=== PATIENT | male | born 1955 | race Caucasian/White ===

== ENCOUNTER 2021-12-06 10:40 | Emergency (ER) | payer MEDICARE, SELFPAY ==
[2021-12-06 10:58] VITALS: BP 154/87; PULSE 73; RESP 20; TEMP 36.9; O2SAT 97
--- NOTE | 2021-12-06 11:43 | CTR_ITS ---
PROCEDURE INFORMATION: Exam: CT Abdomen And Pelvis Without Contrast Exam date and time: 12/06/2021 12:20 PM Age: 66 years old Clinical indication: Abdominal pain; Generalized; Prior surgery; Surgery date: 1-6 months; Surgery type: 1/2 colon removed; Additional info: Flank pain TECHNIQUE: Imaging protocol: Computed tomography of the abdomen and pelvis without contrast. Radiation optimization: All CT scans at this facility use at least one of these dose optimization techniques: automated exposure control; mA and/or kV adjustment per patient size (includes targeted exams where dose is matched to clinical indication); or iterative reconstruction. COMPARISON: No relevant prior studies available. RADIATION DOSE METRICS: Total DLP (mGy-cm): 1413.03 FINDINGS: Liver: Normal. No mass. Gallbladder and bile ducts: Normal. No calcified stones. No ductal dilation. Pancreas: Normal. No ductal dilation. Spleen: Normal. No splenomegaly. Adrenal glands: Normal. No mass. Kidneys and ureters: There is a 3 mm calculus in the left UVJ.Moderate hydronephrosis/hydroureter and associated inflammatory stranding. There are additional calculi in the left renal calices the larger of which measures 12 mm. There is a cyst with benign features in the right kidney measuring 2.1 cm. Follow-up is not necessary. There is a punctate nonobstructing right renal calculus. 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 Appendix: No evidence of appendicitis. Intraperitoneal space: Unremarkable. No free air. No significant fluid collection. Vasculature: Unremarkable. No abdominal aortic aneurysm. Lymph nodes: Unremarkable. No enlarged lymph nodes. Urinary bladder: Unremarkable as visualized. Reproductive: Unremarkable as visualized. Bones/joints: Unremarkable. No acute fracture. Soft tissues: There are postoperative changes in the ventral abdominal wall. CT/CT abdomen pelvis wo con [id number] IMPRESSION: There is a 3 mm calculus in the left UVJ with obstructive changes as described above. COMMENTS: Consistent with the [employer]'s Incidental Findings Committee white paper (J Am Eugene Radiol 2018): Any incidental renal lesion less than 1 cm or classified as too small to characterize, or any incidental cystic renal lesion characterized as simple-appearing, is likely benign. No follow-up imaging is recommended for these lesions per consensus recommendations based on imaging criteria.
[2021-12-06 11:50] LABS: Basophils % 0.2 %; Eosinophils % 0.1 %; Hematocrit 39.8 % (42.0-52.0); Hemoglobin 12.3 g/dL (11.7-16.6); Lymphocytes # 1.2 10^3/uL (0.8-4.8); Lymphocytes % 8.7 %; Mean Corpuscular HGB Conc 30.9 g/dL (30.0-36.0); Mean Corpuscular Hemoglobin 25.2 pg (28.0-34.0); Mean Corpuscular Volume 81.4 fl (80-94); Mean Platelet Volume 11.2 fL (7.4-10.4); Monocytes # 1.3 10^3/uL (0.2-0.9); Monocytes % 9.2 %; Neutrophils # 11.38 10^3/uL (1.8-7.7); Neutrophils % 81.1 %; Nucleated Red Blood Cells % 0 %; Platelet Count 318 10^3/cmm (130-400); Red Blood Count 4.89 10^6/uL (4.1-5.3); Red Cell Distribution Width 16.5 % (12.1-15.1)
[2021-12-06 12:06] LABS: Alanine Aminotransferase 13 U/L (0-41); Albumin Level 3.8 g/dL (3.5-5.2); Alkaline Phosphatase 89 IU/L (40-130); Anion Gap 15.2 (5-19); Aspartate Amino Transferase 14 U/L (0-40); Blood Urea Nitrogen 15 mg/dL (8-23); Calcium 9.3 mg/dL (8.5-10.5); Carbon Dioxide 27 mmol/L (22-29); Chloride 94 mmol/L (98-107); Globulin 4.3 g/dL (1.3-4.6); Glomerular Filtration Rate 84.4 mL/min (90-130); Glucose 169 mg/dL (65-115); Lipase 8 U/L (13-60); Osmolality Calculated 279 mOsm/kg (285-295); Potassium 4.2 mmol/L (3.5-5.1); Sodium 132 mmol/L (136-145); Total Bilirubin 0.5 mg/dL (0.15-1.2); Total Protein 8.1 g/dL (6.6-8.7)
--- NOTE | 2021-12-06 13:17 | ED_ITS ---
HPI - Back Pain/Injury General: Chief Complaint: Back Pain/Injury Stated Complaint: back pain, possible kidney stone, n/v Time Seen by Provider: 12/06/21 13:10 Source: patient Mode of arrival: ambulatory Limitations: no limitations History of Present Illness: 66-year-old male who states he has been having left-sided flank pain over the last 4 to 5 days he states he was seen at [place] than did have a distal kidney stone. He states that his pain is continued to worsening. He states the pain is now into his abdomen he is concerned because he did have a partial colectomy earlier this year. Patient's had some nausea and vomiting had a hard time tolerating his pain pills. Patient denies any fevers denies any worsening proving factors. Associated symptoms: Reports abdominal pain, nausea and vomiting; Deny chills, dysuria or fever(s) Review of Systems Const: Denies: fever(s), chills, body aches or change in appetite Eyes: Denies: blurry vision or eye discomfort ENMT: Denies: throat pain or dental pain Card: Denies: chest pain Resp: Denies: dyspnea GI: Reports: abdominal pain, nausea and vomiting : Denies: dysuria Musc: Denies: neck pain or back pain Skin/Breast: Denies: rash Neuro: Denies: headache(s) Psych: Denies: depression Vince/Lymph: Denies: easy bruising All/Imm: Denies: urticaria PFSH ED PFSH: Surgical History (Updated 12/06/21 @ 13:17 by Carlos Fallon MD) H/O colectomy Social History (Updated 12/06/21 @ 13:17 by Carlos Fallon MD) Substance/Drug Use: never Physical Exam Const: COMMON NORMALS: no acute distress, patient oriented x3 and healthy appearing HENMT: COMMON NORMALS: normocephalic and atraumatic HEAD & SCALP: normocephalic and atraumatic Eye: COMMON NORMALS: Equal, round and reactive pupils present and EOMs intact bilaterally PUPIL: Yes Equal, round and reactive pupils present Neck/C-Spine: COMMON NORMALS: full ROM and supple Chest: COMMONS NORMALS: normal inspection of the chest and normal palpation of entire chest wall Resp: COMMON NORMALS: normal respiratory effort, No retractions, No use of accessory muscles and clear to auscultation bilaterally AUSCULTATION: clear to auscultation bilaterally Cardio: COMMON NORMALS: regular rate, regular rhythm and No murmurs present (Cardio) RATE: regular rate RHYTHM: regular rhythm GI: COMMON NORMALS: Normal to inspection, nondistended, normoactive bowel sounds present, Soft to palpation and no masses PALPATION: Yes Soft to palpation OTHER: diffuse mild tenderness Extremity: COMMON NORMALS: normal to inspection and full ROM Neuro: COMMON NORMALS: patient oriented x3, moves all extremities and no focal motor deficits Psych: COMMON NORMALS: mental status grossly normal, Normal thought process present and cooperative THOUGHT PROCESS: Normal thought process present Skin: COMMON NORMALS: no rashes or lesions noted and no wounds GENERAL SKIN EXAM: no rashes or lesions noted Course Vital Signs: Vital signs: Vital Signs Temperature 98.4 F 12/06/21 10:58 Pulse Rate 81 12/06/21 15:10 Respiratory Rate 14 12/06/21 15:10 Blood Pressure 161/94 12/06/21 15:10 Pulse Oximetry 90 12/06/21 15:10 MDM - Back Pain/Injury Medical Decision Making Patient presents with flank pain along with abdominal pain he was found to have a kidney stone. Patient has no signs of infection here his CT was otherwise normal we will get him follow-up with urology and he is to return if worsening he understands agrees to plan. Labs : 12/06/21 11:13 12/06/21 11:13 Radiology Impressions Abdomen/Pelvis CT 12/06/21 11:43 IMPRESSION: There is a 3 mm calculus in the left UVJ with obstructive changes as described above. COMMENTS: Consistent with the [employer]'s Incidental Findings Committee white paper (J Am Eugene Radiol 2018): Any incidental renal lesion less than 1 cm or classified as too small to characterize, or any incidental cystic renal lesion characterized as simple-appearing, is likely benign. No follow-up imaging is recommended for these lesions per consensus recommendations based on imaging criteria. Laboratory Results WBC 14.0 10^3/uL (4.0-10.0) H 12/06/21 11:13 RBC 4.89 10^6/uL (4.1-5.3) 12/06/21 11:13 Hgb 12.3 g/dL (11.7-16.6) 12/06/21 11:13 Hct 39.8 % (42.0-52.0) L 12/06/21 11:13 MCV 81.4 fl (80-94) 12/06/21 11:13 MCH 25.2 pg (28.0-34.0) L 12/06/21 11:13 MCHC 30.9 g/dL (30.0-36.0) 12/06/21 11:13 RDW 16.5 % (12.1-15.1) H 12/06/21 11:13 Plt Count 318 10^3/cmm (130-400) 12/06/21 11:13 MPV 11.2 fL (7.4-10.4) H 12/06/21 11:13 Neut % (Auto) 81.1 % 12/06/21 11:13 Lymph % (Auto) 8.7 % 12/06/21 11:13 [place] % (Auto) 9.2 % 12/06/21 11:13 Eos % (Auto) 0.1 % 12/06/21 11:13 Baso % (Auto) 0.2 % 12/06/21 11:13 Neut # (Auto) 11.38 10^3/uL (1.8-7.7) H 12/06/21 11:13 Lymph # (Auto) 1.2 10^3/uL (0.8-4.8) 12/06/21 11:13 [place] # (Auto) 1.3 10^3/uL (0.2-0.9) H 12/06/21 11:13 Eos # (Auto) 0.0 10^3/uL (0.0-0.8) 12/06/21 11:13 Baso # (Auto) 0.0 10^3/uL (0.0-0.1) 12/06/21 11:13 Nucleated RBC % (auto) 0 % 12/06/21 11:13 Nucleated RBCs # 0.0 /100WBC 12/06/21 11:13 Sodium 132 mmol/L (136-145) L 12/06/21 11:13 Potassium 4.2 mmol/L (3.5-5.1) 12/06/21 11:13 Chloride 94 mmol/L (98-107) L 12/06/21 11:13 Carbon Dioxide 27 mmol/L (22-29) 12/06/21 11:13 Anion Gap 15.2 (5-19) 12/06/21 11:13 BUN 15 mg/dL (8-23) 12/06/21 11:13 Creatinine 0.9 mg/dL (0.7-1.2) 12/06/21 11:13 GFR Calculation 84.4 mL/min (90-130) L 12/06/21 11:13 Glucose 169 mg/dL (65-115) H 12/06/21 11:13 Calculated Osmolality 279 mOsm/kg (285-295) L 12/06/21 11:13 Calcium 9.3 mg/dL (8.5-10.5) 12/06/21 11:13 Total Bilirubin 0.5 mg/dL (0.15-1.2) 12/06/21 11:13 AST 14 U/L (0-40) 12/06/21 11:13 ALT 13 U/L (0-41) 12/06/21 11:13 Alkaline Phosphatase 89 IU/L (40-130) 12/06/21 11:13 Total Protein 8.1 g/dL (6.6-8.7) 12/06/21 11:13 Albumin 3.8 g/dL (3.5-5.2) 12/06/21 11:13 Globulin 4.3 g/dL (1.3-4.6) 12/06/21 11:13 Lipase 8 U/L (13-60) L 12/06/21 11:13 Urine Color Yellow (Yellow) 12/06/21 13:45 Urine Appearance Clear (CLEAR) 12/06/21 13:45 Urine pH 5 (5-7) 12/06/21 13:45 Ur Specific [place] 1.015 (1.005-1.030) 12/06/21 13:45 Urine Protein 1+ (Negative) H 12/06/21 13:45 Urine Glucose (UA) Norm (Normal) 12/06/21 13:45 Urine Ketones 1+ (Negative) H 12/06/21 13:45 Urine Blood 3+ (Negative) H 12/06/21 13:45 Urine Nitrate Negative (Negative) 12/06/21 13:45 Urine Bilirubin Neg (Negative) 12/06/21 13:45 Urine Urobilinogen 1 mg/dL (Negative) H 12/06/21 13:45 Ur Leukocyte Esterase Negative (Negative) 12/06/21 13:45 Urine RBC 5-10 /hpf (0-2) H 12/06/21 13:45 Urine WBC 0-4 /hpf (0-5) H 12/06/21 13:45 Ur Squamous Epith Cells None /hpf (0-5) 12/06/21 13:45 Ur Transition Epith Cell 0-4 /hpf 12/06/21 13:45 Amorphous Sediment Not Reportable 12/06/21 13:45 Urine Bacteria Trace /hpf (NONE) 12/06/21 13:45 Urine Mucus Trace /hpf 12/06/21 13:45 Discharge Plan Discharge Patient Disposition: Home Clinical Impression: Kidney stone Prescriptions: New ondansetron 4 mg tablet,disintegrating 4 mg PO Q6H PRN (Reason: nausea and vomiting) Qty: 14 0RF Discharge Orders: Discharge ED (Routine); Ordered 12/06/21 Ordered By: Carlos Fallon Referrals: Campbell Feliz MD [Physician] - 1-3 days Ephraim Ann [Primary Care Provider] - Discharge Diet: Advance as tolerated Discharge Activity: Resume usual activity Patient Instructions: Kidney Stones (ED), Opioid Safety Coding Level of Care Code ED Mend Worker for lBancag Fwd Exam Comprehensive
[2021-12-06 13:31] VITALS: BP 179/95; PULSE 74; RESP 15; O2SAT 98
[2021-12-06 14:31] VITALS: BP 162/85; PULSE 76; RESP 15; O2SAT 92
[2021-12-06 14:32] LABS: Add Urine Microscopic? YES; Bacteria Urine TRACE /hpf; Bilirubin Urine Neg (Negative); Blood Urine 3+ (Negative); Glucose Urine UA Norm (Normal); Ketones Urine 1+ (Negative); Leukocyte Esterase Urine Negative (Negative); Nitrate Urine Negative (Negative); Protein Urine 1+ (Negative); Specific Gravity, Urine 1.015 (1.005-1.030); Urine Appearance Clear (CLEAR); Urine Color Yellow (Yellow); Urobilinogen Urine 1 mg/dL (Negative); WBC Urine 0-4 /hpf (0-5); pH Urine 5 (5-7)
[2021-12-06 14:33] LABS: Add Urine Culture? No; Mucus Urine TRACE /hpf; Transitional Epi Cells Urine 0-4 /hpf
[2021-12-06 15:10] VITALS: BP 161/94; PULSE 81; RESP 14; O2SAT 90
== END 2021-12-06 15:00 | disposition home or self-care (01) ==
PROVIDERS: Emergency Medicine; Emergency Provider Emergency Medicine; PCP Family Medicine
DX: N20.0 Calculus of kidney (principal)
CPT/HCPCS: 74176; 80053; 81001; 83690; 85025; 99284

== ENCOUNTER → 2022-01-27 11:02 | Outpatient (BNVA) | payer MEDICARE, SELFPAY | PROVIDERS: PCP Family Medicine; Visit Provider Orthopaedic Surgery | DX: M12.811 Other specific arthropathies, not elsewhere classified, right shoulder (principal); M12.812 Other specific arthropathies, not elsewhere classified, left shoulder; M75.101 Unspecified rotator cuff tear or rupture of right shoulder, not specified as traumatic; M75.102 Unspecified rotator cuff tear or rupture of left shoulder, not specified as traumatic | CPT/HCPCS: 73030; 99203 ==

== ENCOUNTER 2022-04-06 13:50 | Outpatient (CLI) | payer MEDICARE, SELFPAY ==
--- NOTE | 2022-04-06 14:30 | MR_ITS ---
WS: [id number] MRI LEFT SHOULDER NONCONTRAST TECHNIQUE: Sagittal T2, coronal T1, T2 and proton density imaging. Axial gradient PDE imaging. CLINICAL INFORMATION: pain COMPARISON: None. FINDINGS: Postoperative changes at the AC joint. Subacromial and subdeltoid fluid. Surgical resection of the di stal clavicle. High-grade tear of the distal 1/3 supraspinatus with fluid-filled tendon gap and tendo n retraction. Tendon retraction measures 10 mm. Small amount of supraspinatus intact at the insertion . Infraspinatus appears intact with tendinopathy and a small distal insertional tear. Chronic thinnin g of the infraspinatus. Biceps tendon repair. Biceps labral anchor appears intact. Biceps tendon intact within the bicipital groove. Intra-articular biceps tendon appears intact. a Normal teres minor. Chronic thinning of the subscapularis which appears intact. Degenerative fraying of the glenoid labrum. 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 MR/MR shoulder LT wo con* [id number] IMPRESSION: 1. High-grade full-thickness tear of the distal supraspinatus with fluid-fille d cleft. Tendon retraction measures approximately 10 mm. 2. Tendinopathy in the distal infraspinatus with small distal insertional tear . 3. Rotator cuff is otherwise intact. 4. Previous repair of the biceps tendon. Biceps tendon appears intact in the b icipital groove. Intra-articular biceps tendon appears intact. 5. Postoperative changes AC joint with subacromial and subdeltoid fluid. Rese ction of distal clavicle.
== END 2022-04-06 13:51 | disposition home or self-care (01) ==
PROVIDERS: PCP Family Medicine; Visit Provider Orthopaedic Surgery
DX: M12.811 Other specific arthropathies, not elsewhere classified, right shoulder (principal); M12.812 Other specific arthropathies, not elsewhere classified, left shoulder; S43.492A Other sprain of left shoulder joint, initial encounter; X58.XXXA Exposure to other specified factors, initial encounter; Z98.890 Other specified postprocedural states
CPT/HCPCS: 73221

== ENCOUNTER 2024-01-13 14:30 | Emergency (ER) | payer MEDICARE, SELFPAY ==
[2024-01-13 14:41] LABS: Glucose Point of Care 105 mg/dL (70-110)
[2024-01-13 14:42] VITALS: BP 128/99; PULSE 75; TEMP 36.8; O2SAT 96; BMI 37.3
--- NOTE | 2024-01-13 14:44 | CTR_ITS ---
PROCEDURE INFORMATION: Exam: CT Head Without Contrast Exam date and time: 01/13/2024 2:53 PM Age: 68 years old Clinical indication: Stroke-like symptoms; Altered mental status/memory loss TECHNIQUE: Imaging protocol: Computed tomography of the head without contrast. Radiation optimization: All CT scans at this facility use at least one of these dose optimization techniques: automated exposure control; mA and/or kV adjustment per patient size (includes targeted exams where dose is matched to clinical indication); or iterative reconstruction. Other technique: STROKE PROTOCOL was implemented. COMPARISON: No relevant prior studies available. RADIATION DOSE METRICS: Total DLP (mGy-cm): 1207.48 FINDINGS: Brain: [id number] atrophy and small vessel ischemic disease without intracranial blood. Cerebral ventricles: No ventriculomegaly. Paranasal sinuses: Visualized sinuses are unremarkable. No fluid levels. Mastoid air cells: Visualized mastoid air cells are well aerated. Bones: Unremarkable. No acute fracture. Soft tissues: Unremarkable. CT/CT head thrombolytic [id number] IMPRESSION: No acute intracranial abnormality. ASSESSMENT: ASPECTS ([place]hea Stroke Program Early CT Score) is 10.
--- NOTE | 2024-01-13 14:44 | XR_ITS ---
WS: [id number] Examination: XR chest 1V portable [id number] Reason for Exam: altered mental status Date: January 13, 2024 Comparison: None. Findings: The heart is not grossly enlarged on this AP portable film. There is no pulmonary edema or large pleural effusion Markings are mildly increased in the lung bases particularly on the left. Dense consolidation is not appreciated. XR/XR chest 1V portable [id number] IMPRESSION: Increased markings in the bases are noted. This may be chronic in nature. There is no failure or dense consolidation. If symptoms persist PA and lateral imagi ng of the chest is recommended.
--- NOTE | 2024-01-13 14:46 | ECG_ITS ---
[facility] Test Date: 2024-01-13 Pat Name: Graham Kaminski Department: Room: Gender: Male Polysomnography Technologist: : 1955 Requested By: Elio Stockton Order Number: [id number] Reading MD: MARIO ROSARIO Measurements Intervals [place] Rate: 69 P: 34 SD: 167 QRS: -8 QRSD: 103 T: 36 QT: 323 QTc: 347 Interpretive Statements SINUS RHYTHM NONSPECIFIC T-WAVE ABNORMALITY No previous ECG available for comparison Electronically Signed On 01-14-2024 20:24:31 CDT by MARIO ROSARIO [email or web address]
[2024-01-13 14:52] LABS: Basophils % 0.3 %; Eosinophils # 0.3 10^3/uL (0.0-0.8); Eosinophils % 2.6 %; Hematocrit 41.4 % (37-53); Lymphocytes # 1.7 10^3/uL (0.8-4.8); Mean Corpuscular HGB Conc 31.4 g/dL (30-55); Mean Corpuscular Volume 86.1 fl (82-101); Mean Platelet Volume 10.6 fL (7.4-10.4); Monocytes # 0.9 10^3/uL (0.2-0.9); Monocytes % 9.7 %; Neutrophils # 6.63 10^3/uL (1.8-7.7); Neutrophils % 69.2 %; Nucleated Red Blood Cells % 0 %; Platelet Count 275 10^3/cmm (157-399); Red Blood Count 4.81 10^6/uL (3.85-5.65); Red Cell Distribution Width 16.1 % (12.1-15.1); White Blood Count 9.58 10^3/uL (3.29-11.43)
--- NOTE | 2024-01-13 14:58 | ED_ITS ---
HPI - Weakness 2 General: Chief complaint: Weakness Stated complaint: unresponsive Time Seen by Provider: 01/13/24 14:34 History of Present Illness: 68-year-old male presents emergency depa rtment chief complaint of near syncope and significant weakness that started 3 to 4 hours ago patient's reports he gets like this sometimes patient endorses history of diabetes patient has not no recent medication changes or any other associate symptoms patient presents to the ER reporting significant weakness to his full body patient is a very poor historian which is bit difficult to keep awake on my exam per the family patient has had no recent drug or alcohol or any other associate medications for pain or anxiety, the patient presents to the ER for further assessment and management. Associated symptoms: Reports confusion; Denies chest pain, chills, fever(s), headache(s), nausea or vomiting Review of Systems 2 General: Reports: 10 or more systems reviewed and unremarkable except in HPI and below Const: Denies: fever(s), chills, fatigue or malaise Eyes: Denies: change in vision or blurry vision Card: Denies: chest pain or palpitations Resp: Denies: dyspnea or productive cough GI: Denies: abdominal pain, nausea or vomiting : Denies: flank pain Musc: Denies: extremity pain or extremity swelling Skin/Breast: Denies: rash or pruritus Neuro: Reports: dizziness, confusion and Slurred speech present; Denies: headache(s) or behavioral changes Psych: Denies: anxiety or depression Vince/Lymph: Denies: easy bleeding All/Imm: Denies: urticaria, throat swelling or facial swelling PFSH ED 2 PFSH: Surgical History H/O colectomy Social History Smoking and tobacco/nicotine status: never used tobacco/nicotine Substance/Drug Use: never Physical Exam 2 Const: COMMON NORMALS: healthy appearing; apparent distress (Difficult to arouse patient appears encephalopathic no smell of alcohol not) and negative for alert (No obvious focal neurodeficit appreciated difficult to arouse and maintain ) HENMT: COMMON NORMALS: normocephalic and atraumatic HEAD & SCALP: n ormocephalic and atraumatic Eye: COMMON NORMALS: Equal, round and reactive pupils present and EOMs intact bilaterally PUPIL: Yes Equal, round and reactive pupils present Neck/C-Spine: COMMON NORMALS: full ROM, supple and no JVD Lymph: LYMPHATIC: no lymphadenopathy noted Chest: COMMONS NORMALS: normal inspection of the chest and normal palpation of entire chest wall Resp: COMMON NORMALS: normal respiratory effort, No retractions and clear to auscultation bilaterally EFFORT & INSPECTION: Yes able to speak in complete sentences and Yes symmetric chest movement AUSCULTATION: clear to auscultation bilaterally Cardio: COMMON NORMALS: no JVD, regular rate and regular rhythm RATE: r egular rate RHYTHM: regular rhythm GI: COMMON NORMALS: Normal to inspection, nondistended, normoactive bowel sounds present, Soft to palpation and non-tender INSPECTION: Yes normal to inspection PALPATION: Yes Soft to palpation : COMMON NORMALS: Yes no CVA tenderness BLADDER/KIDNEY EXAM: Yes no CVA tenderness Back/Pelvis: COMMON NORMALS: no CVA tenderness Extremity: COMMON NORMALS: normal to inspection and full ROM Neuro: COMMON NORMALS: CN's II-XII intact bilaterally, moves all extremities and no focal motor deficits; negative for gait normal (GCS is 15 NIH of 0 concerns of Encephalopathy appreciated) SENSORIUM/ORIENTATION: No alert (No obvious focal neurodeficit appreciated difficult to arouse and maintain ) Psych: COMMON NORMALS: mental status grossly normal, Normal thought process present, cooperative and normal affect THOUGHT PROCESS: Normal thought process present Skin: COMMON NORMALS: no rashes or lesions noted GENERAL SKIN EXAM: no rashes or lesions noted Course 2 Vital Signs: Vital signs: Vital Signs Temperature 98.2 F 01/13/24 14:42 Pulse Rate 67 01/13/24 19:37 Respiratory Rate 24 H 01/13/24 18:51 Blood Pressure 173/83 01/13/24 19:37 Pulse Oximetry 99 01/13/24 19:37 Oxygen Delivery Me thod Room Air 01/13/24 14:42 MDM - Weakness Medical Decision Making Due to patient's symptoms and condition it is unclear whether this is more of a neurological condition or cardiac will continue to follow CT imaging of the head will be obtained cardiac workup will be obtained on exam NIH was obtained that came back unremarkable underlying concerns of possible exogenous use is prominent due to this patient will be writing some Narcan to see this improves his neurological condition, will continue to follow. Imaging came back unremarkable the patient patient's status continued to improve CT imaging of the head came back unremarkable chest x-ray also came back unremarkable patient may have had a vasovagal episode it is unclear what exactly prior to arrival patient has no neurological deficits patient is stable for discharge home advised further follow-up primary care if needed in 3 to 5 days in which to return the interim if any of the symptoms persist or worse. Lab Data 01/13/24 14:30 01/13/24 15:08 Radiology Impressions Chest X-Ray 01/13/24 14:44 IMPRESSION: Increased markings in the bases are noted. This may be chronic in nature. There is no failure or dense consolidation. If symptoms persist PA and lateral imaging of the chest is recommended. Head CT 01/13/24 14:44 IMPRESSION: No acute intracranial abnormality. ASSESSMENT: ASPECTS (Rhea Stroke Program Early CT Score) is 10. Laboratory Results WBC 9.58 10^3/uL (3.29-11.43) 01/13/24 14:30 RBC 4.81 10^6/uL (3.85-5.65) 01/13/24 14:30 Hgb 13.00 g/dL (11.27-16.99) 01/13/24 14:30 Hct 41.4 % (37-53) 01/13/24 14:30 MCV 86.1 fl (82-101) 01/13/24 14:30 MCH 27.0 pg (27-33) 01/13/24 14:30 MCHC 31.4 g/dL (30-55) 01/13/24 14:30 RDW 16.1 % (12.1-15.1) H 01/13/24 14:30 Plt Count 275 10^3/cmm (157-399) 01/13/24 14:30 MPV 10.6 fL (7.4-10.4) H 01/13/24 14:30 Neut % (Auto) 69.2 % 01/13/24 14:30 Lymph % (Auto) 18.0 % 01/13/24 14:30 Darke % (Auto) 9.7 % 01/13/24 14:30 Eos % (Auto) 2.6 % 01/13/24 14:30 Baso % (Auto) 0.3 % 01/13/24 14:30 Neut # (Auto) 6.63 10^3/uL (1.8-7.7) 01/13/24 14:30 Lymph # (Auto) 1.7 10^3/uL (0.8-4.8) 01/13/24 14:30 Darke # (Auto) 0.9 10^3/uL (0.2-0.9) 01/13/24 14:30 Eos # (Auto) 0.3 10^3/uL (0.0-0.8) 01/13/24 14:30 Baso # (Auto) 0.0 10^3/uL (0.0-0.1) 01/13/24 14:30 Nucleated RBC % (auto) 0 % 01/13/24 14:30 Nucleated RBCs # 0.0 /100WBC 01/13/24 14:30 PT 13.70 SECONDS (12.1-14.9) 01/13/24 14:30 INR 1.02 (0.8-1.2) 01/13/24 14:30 APTT 29.0 SECONDS (23.9-36.7) 01/13/24 14:30 Sodium 142 mmol/L (136-145) 01/13/24 15:08 Potassium 3.8 mmol/L (3.5-5.1) 01/13/24 15:08 Chloride 109 mmol/L (98-107) H 01/13/24 15:08 Carbon Dioxide 20 mmol/L (22-29) L 01/13/24 15:08 Anion Gap 16.8 (5-19) 01/13/24 15:08 BUN 16 mg/dL (8-23) 01/13/24 15:08 Creatinine 0.6 mg/dL (0.7-1.2) L 01/13/24 15:08 GFR Calculation 134.0 mL/min (90-130) H 01/13/24 15:08 Glucose 81 mg/dL (65-115) 01/13/24 15:08 POC Glucose 105 mg/dL (70-110) 01/13/24 14:35 Calculated Osmolality 294 mOsm/kg (285-295) 01/13/24 15:08 Calcium 8.6 mg/dL (8.5-10.5) 01/13/24 15:08 Total Bilirubin 0.2 mg/dL (0.15-1.2) 01/13/24 15:08 AST 20 U/L (0-40) 01/13/24 15:08 ALT 18 U/L (0-41) 01/13/24 15:08 Alkaline Phosphatase 79 U/L (40-130) 01/13/24 15:08 Troponin T Baseline 12 ng/L (0-15) 01/13/24 15:08 Troponin T 120 Minute 13.45 ng/L (0-15) 01/13/24 17:24 Delta Troponin T 1.45 ABS# (0-10) 01/13/24 17:24 Total Protein 6.6 g/dL (6.6-8.7) 01/13/24 15:08 Albumin 3.8 g/dL (3.5-5.2) 01/13/24 15:08 Globulin 2.8 g/dL (1.3-4.6) 01/13/24 15:08 Urine Color Yellow (Yellow) 01/13/24 Unknown Urine Appearance Clear (CLEAR) 01/13/24 Unknown Urine pH 6.0 (5-7) 01/13/24 Unknown Ur Specific Laverne 1.016 (1.005-1.030) 01/13/24 Unknown Urine Protein Negative (Negative) 01/13/24 Unknown Urine Glucose (UA) 1+ (Normal) H 01/13/24 Unknown Urine Ketones Negative (Negative) 01/13/24 Unknown Urine Blood Negative (Negative) 01/13/24 Unknown Urine Nitrate Negative (Negative) 01/13/24 Unknown Urine Bilirubin Negative (Negative) 01/13/24 Unknown Urine Urobilinogen 1.0 mg/dL (Negative) 01/13/24 Unknown Ur Leukocyte Esterase Negative (Negative) 01/13/24 Unknown Urine RBC 0-2 /hpf (0-2) 01/13/24 Unknown Urine WBC 0-5 /hpf (0-5) 01/13/24 Unknown Ur Squamous Epith Cells 0-5 /hpf (0-5) 01/13/24 Unknown Amorphous Sediment Not Reportable 01/13/24 Unknown Urine Bacteria None seen /hpf (NONE) 01/13/24 Unknown Hyaline Casts 0.81 /lpf 01/13/24 Unknown Urine Opiates Screen Negative ng/mL (Negative) 01/13/24 Unknown Ur Barbiturates Screen Negative ng/mL (Negative) 01/13/24 Unknown Ur Phencyclidine Scrn Negative ng/mL (Negative) 01/13/24 Unknown Ur Amphetamines Screen Negative ng/mL (Negative) 01/13/24 Unknown U Benzodiazepines Scrn Negative ng/mL (Negative) 01/13/24 Unknown Urine Cocaine Screen Negative ng/mL (Negative) 01/13/24 Unknown U Marijuana (THC) Screen Negative ng/mL (Negative) 01/13/24 Unknown Ethyl Alcohol < 10 mg/dL (0-10) 01/13/24 15:08 All radiology interpretation(s) finalized by discharge Discharge Plan Discharge Patient Disposition: Home Clinical Impression: Near syncope, Episode of generalized weakness, Dehydration Condition: Stable Prescriptions: No Action atorvastatin 20 mg tablet 20 mg PO DAILY fluticasone propionate 50 mcg/actuation spray,suspension 1 spray intranasal DAILY Rx Instructions: administer into each nostril montelukast 10 mg tablet 10 mg PO DAILY omeprazole 20 mg capsule,delayed release(DR/EC) 20 mg PO BID lisinopril 20 mg tablet 20 mg PO DAILY gabapentin 600 mg tablet 600 mg PO TID tizanidine 2 mg capsule 2 mg PO BID PRN Patient Comments: 2MG in AM 6MG in PM tramadol 50 mg tablet 50 mg PO TID PRN pramipexole 1.5 mg tablet 1.5 mg PO TID Patient Comments: 1 tab in morning and noon, 2 tabs at bedtime Discharge Orders: Discharge ED (Routine); Ordered 01/13/24 Ordered By: Elio Stockton Referrals: Ephraim Ann [Primary Care Provider] - 4-7 days Discharge Diet: Advance as tolerated Discharge Activity: Increase activity as tolerated Patient Instructions: Near Syncope (ED), Weakness (Generalized) Activity Restrictions/Additional Instructions: Please increase your p.o. intake of oral fluids will help reduce likelihood of additional weakness and fatigue your lab work imaging today has come back reassuring please for the follow-up your primary care doctor in 3 to 5 days and was to return the interim if any of your symptoms persist or worse. Coding Level of Care Code ED Student Counselor for Chg Fwd Related Data Home Medications Medication Instructions Recorded Confirmed atorvastatin 20 mg tablet 20 mg PO DAILY 01/27/22 01/27/22 fluticasone propionate 50 1 spray intranasal DAILY 01/27/22 01/27/22 mcg/actuation nasal spray,suspension gabapentin 600 mg tablet 600 mg PO TID 01/27/22 01/27/22 lisinopril 20 mg tablet 20 mg PO DAILY 01/27/22 01/27/22 montelukast 10 mg tablet 10 mg PO DAILY 01/27/22 01/27/22 omeprazole 20 mg capsule,delayed 20 mg PO BID 01/27/22 01/27/22 release pramipexole 1.5 mg tablet 1.5 mg PO TID 01/27/22 01/27/22 tizanidine 2 mg capsule 2 mg PO BID PRN 01/27/22 01/27/22 tramadol 50 mg tablet 50 mg PO TID PRN 01/27/22 01/27/22 Allergies Allergy/AdvReac Type Severity Reaction Status Date / Time acetaminophen [From Vicodin] Allergy ALGY-Hives Verified 01/13/24 14:49 hydrocodone Allergy ALGY-Hives Verified 01/13/24 14:49
[2024-01-13 15:12] LABS: INR 1.02 (0.8-1.2)
[2024-01-13] MEDS: sodium chloride 0.9% 1,000 ML 999 ML IV ×2 (15:27→17:52)
[2024-01-13] MEDS: naloxone 0.4 mg/ml SDV 2 MG IVP (15:41)
[2024-01-13 15:42] LABS: Alanine Aminotransferase 18 U/L (0-41); Albumin Level 3.8 g/dL (3.5-5.2); Alkaline Phosphatase 79 U/L (40-130); Anion Gap 16.8 (5-19); Aspartate Amino Transferase 20 U/L (0-40); Blood Urea Nitrogen 16 mg/dL (8-23); Calcium 8.6 mg/dL (8.5-10.5); Carbon Dioxide 20 mmol/L (22-29); Chloride 109 mmol/L (98-107); Creatinine Clr Calc Pharmacy 124.1085; Globulin 2.8 g/dL (1.3-4.6); Glucose 81 mg/dL (65-115); Osmolality Calculated 294 mOsm/kg (285-295); Potassium 3.8 mmol/L (3.5-5.1); Sodium 142 mmol/L (136-145); Total Bilirubin 0.2 mg/dL (0.15-1.2); Total Protein 6.6 g/dL (6.6-8.7)
[2024-01-13 15:43] LABS: Alcohol Level < 10 mg/dL (0-10)
[2024-01-13 15:45] LABS: Troponin(5th) Baseline 12 ng/L (0-15)
--- NOTE | 2024-01-13 15:50 | PC.NURSE ---
PT PRESENTS WITH COMPLAINT OF WEAKNESS. UPON ARRIVAL PT WAS ONLY AROUSABLE VIA STERNAL RUB. PT UNABLE TO STAND OR HOLD ARMS UP. AT BEDSIDE STATES THIS HAPPENS TO PT SOMETIMES. PT STATES PT HAS HX OF TIA. DENIES CARDIAC HX. STATES PT HAS HAD A COUPLE ABD SURGERIES. PT IS ORIENTED TO SELF. RESPIRATIONS EVEN AND UNLABORED, AIRWAY PATENT.
--- NOTE | 2024-01-13 16:46 | ECG_ITS ---
[facility] Test Date: 2024-01-13 Pat Name: Graham Kaminski Department: Room: Gender: Male Geochemist: : 1955 Requested By: Elio Stockton Order Number: [id number] Reading MD: MARIO ROSARIO Measurements Intervals [place] Rate: 53 P: 31 CA: 179 QRS: -4 QRSD: 108 T: 33 QT: 485 QTc: 455 Interpretive Statements SINUS BRADYCARDIA PROLONGED QT INTERVAL Compared to ECG 01/13/2024 14:36:19 Prolonged QT interval now present Sinus rhythm no longer present T-wave abnormality no longer present Electronically Signed On 01-14-2024 20:27:47 CDT by MARIO ROSARIO [email or web address]
[2024-01-13 17:38] VITALS: BP 155/89; PULSE 56; RESP 18; O2SAT 98
[2024-01-13 17:54] LABS: Troponin 5 2HR 13.45 ng/L (0-15); Troponin 5 2HR Delta 1.45 ABS# (0-10)
[2024-01-13 18:24] LABS: Charge for UA Resulting for Rev
[2024-01-13 18:26] LABS: Bilirubin Urine Negative (Negative); Blood Urine Negative (Negative); Glucose Urine UA 1+ (Normal); Ketones Urine Negative (Negative); Leukocyte Esterase Urine Negative (Negative); Nitrate Urine Negative (Negative); Protein Urine Negative (Negative); Specific Gravity, Urine 1.016 (1.005-1.030); Urine Appearance Clear (CLEAR); Urine Color Yellow (Yellow)
[2024-01-13 18:31] LABS: Bacteria Urine None Seen /hpf; Hyaline Casts Urine 0.81 /lpf; RBC Urine 0-2 /hpf (0-2); Squamous Epithelial Cell Urine 0-5 /hpf (0-5); WBC Urine 0-5 /hpf (0-5)
[2024-01-13 18:35] LABS: Amphetamines Screen Urine Negative (Negative); Barbiturates Screen Urine Negative (Negative); Benzodiazepines Screen Urine Negative (Negative); Cocaine Screen Urine Negative (Negative); Opiate Screen Urine Negative (Negative); PCP Screen Urine Negative (Negative); THC Screen Urine Negative (Negative)
[2024-01-13 18:51] VITALS: BP 149/87; PULSE 63; RESP 24; O2SAT 97
--- NOTE | 2024-01-13 18:52 | PC.NURSE ---
Assumed care from Geovanna SALINAS at shift change.
[2024-01-13 19:37] VITALS: BP 173/83; PULSE 67; O2SAT 99
[2024-01-13 20:00] VITALS: BP 164/82; PULSE 59; O2SAT 99
== END 2024-01-13 20:00 | disposition home or self-care (01) ==
PROVIDERS: Emergency Provider Emergency Medicine; PCP Family Medicine
DX: R55 Syncope and collapse (principal); R53.1 Weakness; E86.0 Dehydration
CPT/HCPCS: 36415; 36416; 70450; 71045; 80053; 80306; 80307; 81003; 81015; 82962; 84484; 85025; 85610; 85730; 93005; 96361; 96374; 99285; J2310; J7030

== ENCOUNTER 2024-02-22 08:51 | Outpatient (CLI) | payer MEDICARE, SELFPAY ==
[2024-02-22 09:06] VITALS: BMI 36.5
--- NOTE | 2024-02-22 09:14 | ECG_ITS ---
[facility] Test Date: 2024-02-22 Pat Name: Graham Kaminski Department: Room: Gender: Male Manager Developmental: : 1955 Requested By: Ephraim Ann Order Number: [id number] Hiram MD: Interpretive Statements Lung unchanged pre/post procedure; Intraprocedure shortess of breath; Symptoms resoled by discharge [email or web address]
--- NOTE | 2024-02-22 09:14 | NMCV_ITS ---
NM braulio perf SPECT r/s* [id number] Graham Kaminski Age: 68 Gender: M : 1955 Exam Date: 02/22/2024 10:00 Ordering Phys: Ephraim Ann Technologist: ELISE Light Exam Location: [facility] Indications: cp STRESS TEST Please see separate stress test report in [facility] for full findings IMAGE PROTOCOL Rest/Stress 1 Lexiscan Day Radiopharmaceutical Dose (mCi) Administration Site Administered by Rest: Tc-99m 10.6 IV ELISE Light Sestamibi Stress:Tc-99m 32.5 IV ELISE Montiel Sestamibi Rest: 22-Feb-2024 60 Discovery 630 Stress: 22-Feb-2024 30 Discovery 630 0.4mg Lexiscan. Images obtained in supine and prone position. SPECT RESULTS Technical Quality: Good Raw Data Analysis: Normal Image Corrections: No attenuation or motion correction applied Summed Stress Score: 0 Summed Rest Score: 3 Summed Difference Score: 0 PERFUSION FINDINGS Small to moderate area of minimally decreased tracer uptake was noted in the mid inferolateral, apical lateral and apical inferior regions. No significant reversibility was noted in these regions. FUNCTIONAL RESULTS (calculated via Gated SPECT) Stress Image LV EF (%): 53 Stress EDV (mL):176 TID: 0.96 Stress ESV (mL):83 FUNCTIONAL FINDINGS: Segmental wall motion analysis revealing no gross wall motion abnormalities IMPRESSIONS 1. Myocardial perfusion imaging revealing small to moderate area of minimally decreased persistent tracer uptake involving the apical inferior, apical lateral and mid inferolateral regions suggesting myocardial scarring versus attenuation artifact 2. Normal LV ejection fraction 53%. 3. LV wall motion analysis revealing no gross wall motion abnormalities. 4. Mildly dilated LV cavity with an end-systolic volume of 83 mL Low probability for coronary ischemia, based on the above findings No similar previous studies are available for comparison Dr Sulema Almodovar MD [facility] (Electronically Signed) Final Date: 23 February 2024 10:20 S
[2024-02-22] MEDS: regadenoson 0.4 Mg/5 ml Syringe IVP (10:36)
[2024-02-22 10:56] VITALS: BP 148/77; PULSE 58
== END 2024-02-22 08:52 | disposition home or self-care (01) ==
PROVIDERS: PCP Family Medicine; Visit Provider Family Medicine
DX: R07.9 Chest pain, unspecified (principal); R94.39 Abnormal result of other cardiovascular function study; R06.02 Shortness of breath; M48.061 Spinal stenosis, lumbar region without neurogenic claudication
CPT/HCPCS: 36415; 78452; 93017; 96374; A9500; J2785